=== PATIENT | female | born 1955 | race Caucasian/White ===

== ENCOUNTER 2019-05-22 23:55 | Emergency (ER) | payer MEDICARE, OTHER ==
[2019-05-23] MEDS ORDERED: HYDROmorphone 0.5 MG/0.5 ML Syringe IVPUSH ONE (00:48)
[2019-05-23] MEDS ORDERED: Ondansetron 4 MG/2 ML SDV IVPUSH ONE (00:48)
--- NOTE | 2019-05-23 00:50 | EDM.PDOC ---
ED HPI GENERAL MEDICAL PROBLEM - General Chief Complaint: Abdominal Pain Stated Complaint: LEFT ABDOMINAL PAIN Time Seen by Provider: 05/23/19 00:49 Source of Information: Reports: Patient History Limitations: Reports: No Limitations - History of Present Illness INITIAL COMMENTS - FREE TEXT/NARRATIVE: pt is having left lower abdomanal pain. She has been vomiting. She did have 2 loose stools. She is chilling. She is rating her pain about a 8/ Onset: Today, Sudden Duration: Hour(s): Location: Reports: Abdomen Associated Symptoms: Reports: Diaphoresis, Nausea/Vomiting, Weakness left sided abd pain Pain Score (Numeric/FACES): 7 - Related Data Allergies Allergy/AdvReac Type Severity Reaction Status Date / Time No Known Allergies Allergy Verified 05/23/19 00:58 Home Meds: Home Meds Calcium Carb & Citrate/Vit D3 [Calcium + Vitamin D3 Caplet] 1 each PO 11/04/14 [ History] Multivitamin [Multivitamins] 1 each PO DAILY 11/04/14 [History] ED ROS GENERAL - Review of Systems Review Of Systems: See Below Constitutional: Reports: Decreased Appetite, Other (pt developed left midabdomanal pain while she was driving today. ) HEENT: Reports: No Symptoms Respiratory: Reports: No Symptoms Cardiovascular: Reports: No Symptoms Endocrine: Reports: No Symptoms GI/Abdominal: Reports: Abdominal Pain, Other ( left midabdoman. Her stools are loose. ) : Reports: No Symptoms Musculoskeletal: Reports: No Symptoms Skin: Reports: No Symptoms ED EXAM, GI/ABD - Physical Exam Exam: See Below Text/Narrative:: pt arrived with pain in the left mid abdoman. This was very severe and she did vomit several times. Exam Limited By: No Limitations General Appearance: Alert, Anxious, Moderate Distress Ears: Normal TMs Nose: Normal Inspection Throat/Mouth: Normal Inspection Head: Atraumatic Neck: Normal Inspection Respiratory/Chest: No Respiratory Distress Cardiovascular: Regular Rate, Rhythm GI/Abdominal Exam: Tender, Other ( left mid abdoman. ) (Female) Exam: Deferred Rectal (Female) Exam: Deferred Back Exam: Normal Inspection Extremities: Normal Inspection Neurological: Alert, Oriented, Normal Cognition Psychiatric: Anxious Course - Vital Signs Last Recorded V/S: Last Vital Signs Temp 36.8 C 05/23/19 00:43 Pulse Resp 16 05/23/19 00:43 BP 178/73 H 05/23/19 00:43 Pulse Ox 97 05/23/19 00:43 - Orders/Labs/Meds Orders: Active Orders 24 hr Category Date Time Status Sodium Chloride 0.9% [Normal Saline] 1,000 ml Med 05/23/19 01:00 Active IV ASDIRECTED Sodium Chloride 0.9% [Normal Saline] 1,000 ml Med 05/23/19 03:00 Active IV ASDIRECTED Medication Orders Sodium Chloride (Normal Saline) 1,000 mls @ 999 mls/hr IV ASDIRECTED MARCELO Last Admin: 05/23/19 01:06 Dose: 999 mls/hr Sodium Chloride (Normal Saline) 1,000 mls @ 999 mls/hr IV ASDIRECTED MARCELO Labs: Laboratory Tests 05/23/19 05/23/19 05/23/19 Range/Units 00:42 00:42 02:57 WBC 8.1 (4.5-11.0) K/uL RBC 4.49 (3.30-5.50) M/uL Hgb 13.5 (12.0-15.0) g/dL Hct 41.8 (36.0-48.0) % MCV 93 (80-98) fL MCH 30 (27-31) pg MCHC 32 (32-36) % Plt Count 246 (150-400) K/uL Neut % (Auto) 85 H (36-66) % Lymph % (Auto) 10 L (24-44) % Wallace % (Auto) 4 (2-6) % Eos % (Auto) 1 L (2-4) % Baso % (Auto) 0 (0-1) % Sodium 144 (140-148) mmol/L Potassium 3.6 (3.6-5.2) mmol/L Chloride 108 (100-108) mmol/L Carbon Dioxide 26 (21-32) mmol/L Anion Gap 10.5 (5.0-14.0) mmol/L BUN 21 H (7-18) mg/dL Creatinine 1.1 H (0.6-1.0) mg/dL Est Cr Clr Drug Dosing 49.58 mL/min Estimated GFR (MDRD) 50 L (>60) Glucose 120 H (74-106) mg/dL Calcium 9.9 (8.5-10.1) mg/dL Total Bilirubin 0.5 (0.2-1.0) mg/dL AST 24 (15-37) U/L ALT 32 (12-78) U/L Alkaline Phosphatase 92 (46-116) U/L C-Reactive Protein 0.06 (0.0-0.3) mg/dL Total Protein 7.5 (6.4-8.2) g/dL Albumin 4.0 (3.4-5.0) g/dL Globulin 3.5 (2.3-3.5) g/dL Albumin/Globulin Ratio 1.1 L (1.2-2.2) Urine Color Yellow Urine Appearance Cloudy Urine pH 5.0 (4.5-8.0) Ur Specific [place] 1.020 (1.008-1.030) Urine Protein Trace (NEGATIVE) mg/dL Urine Glucose (UA) Normal (NEGATIVE) mg/dL Urine Ketones Negative (NEGATIVE) mg/dL Urine Occult Blood Large (NEGATIVE) Urine Nitrite Negative (NEGATIVE) Urine Bilirubin Small (NEGATIVE) Urine Urobilinogen 1 (NORMAL) mg/dL Ur Leukocyte Esterase Small (NEGATIVE) Urine RBC Packed H (0-5) Urine WBC 5-10 H (0-5) Ur Epithelial Cells Few Amorphous Sediment Moderate Urine Bacteria Few Urine Mucus Numerous Urine Other See note Meds: Medications Generic Name Dose Route Start Last Admin Trade Name Freq PRN Reason Stop Dose Admin Sodium Chloride 1,000 mls @ 999 mls/hr 05/23/19 01:00 05/23/19 01:06 Normal Saline IV 999 mls/hr ASDIRECTED MARCELO Administration Sodium Chloride 1,000 mls @ 999 mls/hr 05/23/19 03:00 Normal Saline IV ASDIRECTED MARCELO Discontinued Medications Generic Name Dose Route Start Last Admin Trade Name Freq PRN Reason Stop Dose Admin Hydromorphone HCl 0.5 mg 05/23/19 00:48 05/23/19 01:09 Dilaudid IVPUSH 05/23/19 00:49 0.5 mg ONETIME ONE Administration Sodium Chloride 100 mls @ 3 mls/sec 05/23/19 03:12 05/23/19 03:36 Normal Saline IV 05/23/19 03:13 3 mls/sec ONETIME ONE Administration Iopamidol 150 ml 05/23/19 03:15 05/23/19 03:36 Isovue-300 (61%) IV 150 ml . DIRECTED MARCELO Administration Ketorolac Tromethamine 30 mg 05/23/19 04:07 Toradol IVPUSH 05/23/19 04:08 ONETIME ONE Ondansetron HCl 4 mg 05/23/19 00:48 05/23/19 01:06 Zofran IVPUSH 05/23/19 00:49 4 mg ONETIME ONE Administration Tamsulosin HCl 0.4 mg 05/23/19 04:02 Flomax PO 05/23/19 04:03 ONETIME ONE - Re-Assessments/Exams Free Text/Narrative Re-Assessment/Exam: 05/23/19 02:54 pt had pain which went away and has now returning. She has not vomited. She has had 1 liter of fluid. She did have diarrhea today. 05/23/19 04:01 urine was packed with rbcs. Her cat scan showed a 5 mm stone in the distal left ureter. There is some hydro. Departure - Departure Time of Disposition: 04:05 Disposition: Home, Self-Care 01 Condition: Fair Clinical Impression: Ureteral stone, Dehydration - Discharge Information Referrals: Seun Colin MD [Primary Care Provider] - Forms: ED Department Discharge Care Plan Goals: push fluids, flomax .4 mg daily, torodol 10 mg q6h prn for pain. rtc if pain should become extremely severe. strain all urine, appt with Matt Colin in 2 days if she has not passed the stone. - My Orders Last 24 Hours: My Active Orders 05/23/19 01:00 Sodium Chloride 0.9% [Normal Saline] 1,000 ml IV ASDIRECTED 05/23/19 03:00 Sodium Chloride 0.9% [Normal Saline] 1,000 ml IV ASDIRECTED - Assessment/Plan Last 24 Hours: My Active Orders 05/23/19 01:00 Sodium Chloride 0.9% [Normal Saline] 1,000 ml IV ASDIRECTED 05/23/19 03:00 Sodium Chloride 0.9% [Normal Saline] 1,000 ml IV ASDIRECTED
[2019-05-23] MEDS ORDERED: Sodium Chloride 0.9% 1,000 ML IV SCH ×2 (01:00→03:00)
[2019-05-23] MEDS ORDERED: Sodium Chloride 0.9% 100 ML IV ONE (03:12)
[2019-05-23] MEDS ORDERED: Iopamidol 612 MG/ML 150 ML Bottle IV SCH (03:15)
--- NOTE | 2019-05-23 03:47 | CRLCT ---
INDICATION: Left lower quadrant pain TECHNIQUE: CT Abdomen and pelvis with i.v. contrast. Coronal and sagittal reformats were obtained. CONTRAST: 150 mL Isovue 300 COMPARISON: None FINDINGS: Lower chest: Unremarkable. Liver: Unremarkable. Spleen: Unremarkable. Pancreas: Unremarkable. Gallbladder: Previous cholecystectomy noted with mild intra and extrahepatic biliary ductal dilatation seen. Kidney: There is a 5 mm stone present in the distal left ureter causing mild left hydroureter, delayed enhancement of the left kidney, and moderate left renal pelvicaliectasis. Parapelvic cyst present in the renal sinus bilaterally. There is a 1.3 cm cyst present in the anterior left renal midzone. Mild enhancement of the left ureteral urothelium is seen. Adrenal: Unremarkable. Bowel: There is a 2.6 cm duodenal diverticulum present. The appendix is normal in appearance and size. A small fat containing umbilical hernia is noted. Vascular: Unremarkable. Lymph: Unremarkable. Peritoneum: Unremarkable. No pneumoperitoneum is seen. No significant ascites is noted. Pelvis: Unremarkable. Soft tissue: Unremarkable. Bone: Unremarkable for age. IMPRESSIONS: 1. There is a 5 mm stone present in the distal left ureter causing mild left hydroureter, delayed enhancement of the left kidney, and moderate left renal pelvicaliectasis. 2. Mild enhancement of the left ureteral urothelium is seen. Correlation with urinalysis is recommended to exclude an ascending urinary tract infection. Dictated by Bam Alan MD @ 05/23/2019 3:45:18 AM Please note that all CT scans at this facility use dose modulation, iterative reconstruction, and/or weight-based dosing when appropriate to reduce radiation dose to as low as reasonably achievable. Dictated by: Bam Alan MD @ 05/23/2019 03:45:28 (Electronically Signed)
[2019-05-23] MEDS ORDERED: Tamsulosin 0.4 MG Cap.ER PO ONE (04:02)
[2019-05-23] MEDS ORDERED: Ketorolac 30 MG/ML SDV IVPUSH ONE (04:07)
== END 2019-05-23 04:58 | disposition home or self-care (01) ==
LOC: JP.ED 23:55
DX: N20.1 Calculus of ureter (principal); E86.0 Dehydration; Z79.899 Other long term (current) drug therapy
CPT/HCPCS: 36415; 74177; 80053; 81001; 85025; 86140; 96361; 96374; 96375; 99284; A9270; J1170; J1885; J2405; J7030

== ENCOUNTER 2019-06-07 22:14 | Emergency (ER) | payer MEDICARE, OTHER ==
[2019-06-07] MEDS ORDERED: Phenazopyridine 95 MG Tab PO ONE (23:46)
--- NOTE | 2019-06-07 23:50 | EDM.PDOC ---
ED HPI GENERAL MEDICAL PROBLEM - General Chief Complaint: Genitourinary Problem Stated Complaint: CHELY STONE Time Seen by Provider: 06/07/19 23:40 Source of Information: Reports: Patient, Old Records, RN History Limitations: Reports: No Limitations - History of Present Illness INITIAL COMMENTS - FREE TEXT/NARRATIVE: 63 yo female here with low abdominal pain and the sense that she can't urinate. Only small amts voided at a time. No fever or nausea. Had a recent kidney stone on the left, that felt different. Onset: Today, Gradual Onset Date: 06/07/19 Duration: Hour(s):, Getting Worse Location: Reports: Abdomen (low) Quality: Reports: Pressure Severity: Mild Improves with: Reports: None Worsens with: Reports: Other (time) Context: Reports: Other (see HPI) Associated Symptoms: Reports: No Other Symptoms. 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: Musculoskeletal History: Reports: Arthritis - Infectious Disease History Infectious Disease History: Reports: Chicken Pox, Measles - Past Surgical History GI Surgical History: Reports: Cholecystectomy, Colonoscopy, EGD Female Surgical History: Reports: Oophorectomy, Other (See Below) Other Female Surgeries/Procedures: right ovary removed Social & Family History - Family History Family Medical History: Noncontributory - Tobacco Use Smoking Status *Q: Never Smoker Second Hand Smoke Exposure: No - Caffeine Use Caffeine Use: Reports: Soda - Recreational Drug Use Recreational Drug Use: No ED ROS GENERAL - Review of Systems Review Of Systems: See Below Constitutional: Reports: No Symptoms GI/Abdominal: Reports: Abdominal Pain (low) : Reports: Other (small voids) Skin: Reports: No Symptoms ED EXAM, RENAL/ - Physical Exam Exam: See Below Exam Limited By: No Limitations General Appearance: Alert, WD/WN, No Apparent Distress, Obese Head: Atraumatic, Normocephalic Respiratory/Chest: No Respiratory Distress, Lungs Clear, Normal Breath Sounds, No Accessory Muscle Use Cardiovascular: Regular Rate, Rhythm, No Edema GI/Abdominal: Normal Bowel Sounds, Soft, Non-Tender, No Distention. No: Distended, Guarding, Rigid, Rebound, Tender Extremities: Normal Inspection Neurological: Alert, Oriented, CN II-XII Intact, Normal Cognition, No Motor/ Sensory Deficits Psychiatric: Normal Affect, Normal Mood Skin Exam: Warm, Dry, Intact, Normal Color, No Rash Course - Vital Signs Text/Narrative:: Voided less than 20 ml in ER and bladder scan shows less than 20 ml residual. Last Recorded V/S: Last Vital Signs Temp 36.1 C 06/07/19 23:30 Pulse 71 06/07/19 23:30 Resp 16 06/07/19 23:30 BP 169/61 H 06/07/19 23:30 Pulse Ox 100 06/07/19 23:30 - Orders/Labs/Meds Orders: Active Orders 24 hr Category Date Time Status Bladder Scan [RC] ASDIRECTED Care 06/07/19 23:50 Active CULTURE URINE [RM] Stat Lab 06/08/19 00:20 Received Tamsulosin [Flomax] Med 06/08/19 02:36 Once 0.4 mg PO ONETIME ONE Labs: Laboratory Tests 06/07/19 Range/Units 23:43 Urine Color Yellow Urine Appearance Cloudy Urine pH 5.0 (4.5-8.0) Ur Specific [place] 1.020 (1.008-1.030) Urine Protein Trace (NEGATIVE) mg/dL Urine Glucose (UA) Negative (NEGATIVE) mg/dL Urine Ketones Negative (NEGATIVE) mg/dL Urine Occult Blood Large (NEGATIVE) Urine Nitrite Negative (NEGATIVE) Urine Bilirubin Small (NEGATIVE) Urine Urobilinogen Normal (NORMAL) mg/dL Ur Leukocyte Esterase Small (NEGATIVE) Urine RBC Packed H (0-5) Urine WBC 5-10 H (0-5) Ur Epithelial Cells Few Amorphous Sediment Moderate Urine Bacteria Few Urine Mucus Few Meds: Medications Discontinued Medications Generic Name Dose Route Start Last Admin Trade Name Freq PRN Reason Stop Dose Admin Ketorolac Tromethamine 30 mg 06/08/19 00:20 06/08/19 00:34 Toradol IM 06/08/19 00:21 30 mg ONETIME ONE Administration Phenazopyridine HCl 190 mg 06/07/19 23:46 06/08/19 00:01 Urinary Pain Relief PO 06/07/19 23:47 190 mg ONETIME ONE Administration Departure - Departure Time of Disposition: 02:45 Disposition: Home, Self-Care 01 Condition: Fair Clinical Impression: Ureterolithiasis - Discharge Information *PRESCRIPTION DRUG MONITORING PROGRAM REVIEWED*: No *COPY OF PRESCRIPTION DRUG MONITORING REPORT IN PATIENT MARGARETTE: No Instructions: Kidney Stones, [id number] Referrals: Seun Colin MD [Primary Care Provider] - Forms: ED Department Discharge Additional Instructions: Drink ample fluids. Strain your urine and save any sediment. Take Flomax once daily at bedtime. Follow up with urology. Take ibuprofen or naproxen as needed for pain relief. Add acetaminophen as needed. - My Orders Last 24 Hours: My Active Orders 06/07/19 23:50 Bladder Scan [RC] ASDIRECTED 06/08/19 00:20 CULTURE URINE [RM] Stat 06/08/19 02:36 Tamsulosin [Flomax] 0.4 mg PO ONETIME ONE - Assessment/Plan Last 24 Hours: My Active Orders 06/07/19 23:50 Bladder Scan [RC] ASDIRECTED 06/08/19 00:20 CULTURE URINE [RM] Stat 06/08/19 02:36 Tamsulosin [Flomax] 0.4 mg PO ONETIME ONE
[2019-06-08] MEDS ORDERED: Ketorolac 30 MG/ML SDV IM ONE (00:20)
--- NOTE | 2019-06-08 02:33 | CRLCT ---
INDICATION: bladder pain, recent 5 mm stone distal left ureter CT ABDOMEN AND PELVIS WITHOUT CONTRAST TECHNIQUE: Multidetector CT imaging was performed through the abdomen and pelvis without intravenous contrast administration. Coronal and sagittal reconstructions were generated. COMPARISON: 05/23/2019 CT abdomen and pelvis. FINDINGS: Lower chest: Mild bibasilar lung atelectasis or scarring. Liver: Within normal limits. Gallbladder and bile ducts: Status post cholecystectomy, as before. No biliary dilation identified. Pancreas: Unremarkable. Spleen: Normal. Adrenals: No nodules or masses. Kidneys, ureters, and urinary bladder: Previously seen obstructing 4 millimeter stone in the distal left ureter 5-6 centimeters above the ureterovesicular junction has now moved distally to the ureterovesical junction. Mild dilation of the left ureter and mild left hydronephrosis has slightly increased, as has left perinephric fat stranding. Bilateral renal parapelvic cysts and a left renal cortical cyst are again seen. No bladder mass or definite wall thickening. Gastrointestinal tract: Moderate-sized hiatal hernia. Incidental duodenal diverticulum. Normal caliber bowel without wall thickening. The appendix is normal. Vascular structures: Normal caliber aorta with mild atherosclerotic calcifications. Peritoneum: No free air, abscess, or significant free fluid. Lymph nodes: No pathologically enlarged nodes identified. Reproductive organs: No pelvic masses. Bones: Spinal degenerative changes. IMPRESSION: 1. Obstructing 4 millimeter stone in the distal left ureter has moved distally since the previous exam and is now at the UVJ. Mild left hydroureteronephrosis has slightly increased. 2. Nonacute additional findings as detailed above. HALEIGH REYES MD [facility] Dictated by Gab Reyes MD @ 06/08/2019 2:31:13 AM Dictated by: Gab Reyes MD @ 06/08/2019 02:32:07 (Electronically Signed)
[2019-06-08] MEDS ORDERED: Tamsulosin 0.4 MG Cap.ER PO ONE (02:36)
== END 2019-06-08 02:52 | disposition home or self-care (01) ==
LOC: JP.ED 22:14
DX: N13.2 Hydronephrosis with renal and ureteral calculous obstruction (principal); M19.90 Unspecified osteoarthritis, unspecified site; Z90.49 Acquired absence of other specified parts of digestive tract
CPT/HCPCS: 51798; 74176; 81001; 87086; 96372; 99283; 99284; A9270; J1885

== ENCOUNTER 2021-03-11 09:17 | Day surgery (SDC) | payer MEDICARE, OTHER ==
[~2021-03-11 09:17] MED LIST: Midazolam 1 MG/ML 2 ML SDV ONE; Propofol 200 MG/20 ML SDV ONE; fentaNYL 100 MCG/2 ML SDV ONE
[2021-03-11] MEDS ORDERED: Dextrose 5%-Lactated Ringers 1,000 ML IV SCH (10:15)
--- NOTE | 2021-03-27 13:13 | OR ---
DATE OF PROCEDURE: 03/11/2021 SURGEON: Yair Guadalupe MD PREOPERATIVE DIAGNOSIS: Family history of colon carcinoma. POSTOPERATIVE DIAGNOSES: 1. Family history of colon carcinoma. 2. Single, small, raised area within rectum of questionable pathologic significance. OPERATIVE PROCEDURE: Flexible colonoscopy with polypectomy by snare technique. ANESTHESIA: IV sedation. INDICATION FOR PROCEDURE: A 65-year-old female presenting with a family history of colon carcinoma involving both maternal and paternal sides of the family. The plan is to proceed with a flexible colonoscopy with biopsies and/or polypectomy as indicated. Potential risks of the procedure including bleeding and perforation were discussed, and the patient wishes to proceed. DETAILS OF PROCEDURE: The patient was taken to the operating room and placed in a left lateral decubitus position. IV sedation was administered, after which the initial digital rectal exam was performed and was unremarkable. Colonoscope was then passed into the rectum with retroflexion revealing uncomplicated hemorrhoidal columns. Scope was eventually passed to the level of the cecum. The prep was fairly good. Only a small amount of liquid stool was present. There were no areas of diverticulosis or colitis. The only area of concern was within the mid rectum. It was a single, small, raised area consistent with a possible sessile polyp. The pathologic significance is somewhat unclear, but the area was excised by means of cautery snare technique and sent for histologic evaluation. Good hemostasis was confirmed and the procedure then concluded. We will await the pathology report. If this is an adenomatous polyp, the next colonoscopy should be in 3 years. If it is a nonneoplastic finding pathologically, the next colonoscopy should be in 5 years given the family history. Yair Guadalupe MD /[id number]
== END 2021-03-11 13:00 | disposition home or self-care (01) ==
LOC: JP.SDS 09:17
PROVIDERS: ATTEND Surgery
DX: Z12.11 Encounter for screening for malignant neoplasm of colon (principal); K62.1 Rectal polyp; K64.9 Unspecified hemorrhoids; Z80.0 Family history of malignant neoplasm of digestive organs
CPT/HCPCS: 88305; J2250; J2704; J3010; J7121

== ENCOUNTER 2023-03-05 12:57 | Emergency (ER) | payer MEDICARE, OTHER ==
[2023-03-05] MEDS ORDERED: Ketorolac 30 MG/ML SDV IM ONE (13:30)
[2023-03-05 14:05] LABS: TROPONIN I HIGH SENSITIVITY 36.5 pg/mL (<=60.3)
== END 2023-03-05 14:36 | disposition home or self-care (01) ==
LOC: JP.ED 12:57
DX: R09.1 Pleurisy (principal); Z86.16 Personal history of COVID-19
CPT/HCPCS: 36415; 71046; 80048; 84484; 85025; 96372; 99285; J1885; 99283